=== PATIENT | male | born 1995 | race Caucasian/White ===

== ENCOUNTER 2016-09-08 18:07 | Emergency (ER) | payer MEDICAID ==
[~2016-09-08] VITALS: Ht 182.9 cm; Wt 110.5 kg
[2016-09-08 18:19] VITALS: Ht 182.9 cm; Wt 110.5 kg
[2016-09-08] MEDS ORDERED: IBUPROFEN 600 MG TAB PO ONE (19:00)
--- NOTE | 2016-09-08 19:40 | RADRPT ---
PROCEDURE: XR Hand. CLINICAL INDICATION: A to the right hand. TECHNIQUE: AP oblique and lateral views of the right hand were obtained. COMPARISON: No prior studies are available for comparison. FINDINGS: There is normal mineralization. No acute fracture or dislocation is seen. There are no significant degenerative changes. There is no significant soft tissue swelling. IMPRESSION: Normal x-ray of the right hand x-ray . RPTAT: [facility] Physician Cait Date Time Electronically viewed and signed by Physician Cait on 09/08/2016 19:40 RS/
[2016-09-08] MEDS ORDERED: IBUP-1542 PO (19:43)
--- NOTE | 2016-09-08 19:46 | ERD ---
ER Documentation Chief Complaint Date/Time DATE: 09/08/16 TIME: 19:45 Chief Complaint right hand pain from punching a wall last night HPI 21-year-old male complains of pain in his right hand after punching a wall in anger last night. Denies restricted range of motion weakness or wrist pain or elbow pain ROS All systems reviewed and are negative except as per history of present illness. Medications Home Meds Active Scripts Ibuprofen* (Motrin*) 600 Mg Tab, 600 MG PO Q6, #15 TAB Prov:AIXA LOOMIS MD 09/08/16 Allergies Allergies: Coded Allergies: No Known Allergy (Unverified , 09/08/16) PMhx/Soc History of Surgery: No Anesthesia Reaction: No Hx Neurological Disorder: No Hx Respiratory Disorders: No Hx Cardiac Disorders: No Hx Psychiatric Problems: No Hx Alcohol Use: No Hx Substance Use: No Hx Tobacco Use: No Smoking Status: Never smoker Physical Exam Vitals Vital Signs Date Time Temp Pulse Resp B/P Pulse Ox O2 Delivery O2 Flow Rate FiO2 09/08/16 18:19 97.6 77 18 146/84 100 Physical Exam Const: [] Alert, [id number] per Head: Atraumatic Eyes: Normal Conjunctiva ENT: Normal External Ears, Nose and Mouth. Neck: Full range of motion..~ No meningismus. Resp: Clear to auscultation bilaterally Cardio: Regular rate and rhythm, no murmurs Abd: Soft, non tender, non distended. Normal bowel sounds Skin: No petechiae or rashes Back: No midline or flank tenderness Ext: No cyanosis, or edema. There is some mild tenderness in the right fourth and fifth metacarpal area. There is no appreciable deformities, restricted range of motion weakness. There is some very superficial abrasions without erythema or bleeding. Neur: Awake and alert Psych: Normal Mood and Affect Results 24 hrs Current Medications Medications (Trade) Dose Ordered Sig/Candace Route PRN Reason Start Time Stop Time Status Last Admin Dose Admin Ibuprofen (Motrin) 600 mg ONCE ONCE PO 09/08/16 19:00 09/08/16 19:01 DC 09/08/16 18:54 Procedures/MDM X-ray right hand 3V interpreted by me: Scaphoid: [Normal] Bones: [No fracture] Joints: [No dislocation] Foreign body: [None]. Patient has a normal right hand x-ray Patient presents with signs symptoms of right hand contusion without evidence of fracture, dislocation, tendon or neurologic deficit or bacterial infection we will treat with ibuprofen observation at home instructions to follow with his primary doctor possible orthopedist for pain next week. Return sooner for fevers, redness, new worsening symptoms Departure Diagnosis: Primary Impression: Contusion of hand Encounter type: initial encounter Laterality: right Qualified Code: S60.221A - Contusion of right hand, initial encounter Condition: Stable Patient Instructions: Contusion, Hand Additional Instructions: X-ray read as normal. Likely contusion should improve over the next week. Recheck for pain next week primary doctor and possible orthopedist. Recheck sooner for fevers, redness, new symptoms. AIXA LOOMIS MD Sep 08, 2016 19:46
== END 2016-09-08 19:55 | disposition home or self-care (01) ==
LOC: FTE 18:07
DX: S60.221A Contusion of right hand, initial encounter (principal); W22.8XXA Striking against or struck by other objects, initial encounter; Y92.9 Unspecified place or not applicable
CPT/HCPCS: 73130; Z7502; Z7610